=== PATIENT | male | born 1965 | race Hispanic/Latino ===

== ENCOUNTER 2017-02-01 06:22 | Day surgery (SDC) | payer OTHER ==
[2017-02-01] MEDS ORDERED: ECOTRIN PO ONE (07:11)
[2017-02-01] MEDS ORDERED: NACL 0.9% 500 ML 500 ML IV SCH (08:00)
[2017-02-01 08:10] LABS: Basophils % (Auto) 0.4 % (0.0-1.8); Eosinophils % (Auto) 1.4 % (0.0-4.3); Hematocrit 41.7 % (35.5-45.6); Hemoglobin 13.5 gm/dl (11.8-15.2); Mean Corpuscular HGB Conc 32 % (32-34); Mean Corpuscular Hemoglobin 29 pg (28-32); Mean Corpuscular Volume 88 fl (84-94); Platelet Count 248 K/mm3 (140-440); Red Blood Count 4.74 M/mm3 (3.65-5.03); Red Cell Distribution Width 15.4 % (13.2-15.2); White Blood Count 7.9 K/mm3 (4.5-11.0)
[2017-02-01 08:23] LABS: INR 0.93 (0.87-1.13)
[2017-02-01 08:27] LABS: Anion Gap 16 mmol/L; BUN/Creatinine Ratio 10.83; Blood Urea Nitrogen 13 mg/dL (9-20); Calcium 8.4 mg/dL (8.4-10.2); Carbon Dioxide 24 mmol/L (22-30); Chloride 105.9 mmol/L (98-107); Glucose 91 mg/dL (75-100); Potassium 3.8 mmol/L (3.6-5.0); Sodium 142 mmol/L (137-145)
[2017-02-01] MEDS ORDERED: BENADRYL ONE (09:12)
[2017-02-01] MEDS ORDERED: HEPARIN/NS 5000 UNIT/500ML(CATH LAB) 0 ML IR ONE (09:27)
[2017-02-01] MEDS ORDERED: HEPARIN/NS 5000 UNIT/500ML(CATH LAB) 1,000 ML IR ONE (09:28)
[2017-02-01] MEDS ORDERED: HEPARIN 10,000 UNITS/10 ML ONE (09:29)
[2017-02-01] MEDS ORDERED: CALAN ONE (09:29)
[2017-02-01] MEDS ORDERED: XYLOCAINE 2% INFILTRATI ONE (09:29)
[2017-02-01] MEDS ORDERED: SUBLIMAZE ONE (09:30)
[2017-02-01] MEDS ORDERED: VERSED ONE (09:30)
[2017-02-01] MEDS ORDERED: BENADRYL IV ONE (09:37)
[2017-02-01] MEDS: NITROGLYCERIN SYRINGE 3 ML ONE ×2 (10:09→10:19)
--- NOTE | 2017-02-01 10:43 | Discharge Summary ---
Short Stay Discharge Plan Activity: advance as tolerated Weight Bearing Status: Full Weight Bearing Diet: low fat, low cholesterol, low salt Wound: keep clean and dry Special Instructions: no heavy lifting (3 days) Follow up with: LETY KIDD MD [Primary Care Provider] - 7 Days
--- NOTE | 2017-02-01 10:55 | Cardiac Catherization Report ---
CARDIAC CATHETERIZATION REASON FOR PROCEDURE: Chest pain. PROCEDURE: The patient was prepped and draped in a sterile fashion after informed consent. The right radial cath site was prepped and draped after a negative Keenan's test. The right radial artery was entered using the Seldinger technique followed by placement of a 6-Urdu hydrophilic sheath. Routine radial cocktail was administered via the sheath. A 3.5 left Senait catheter was used for left coronary angiography. A #4 right Senait was used for right coronary angiography. The pigtail catheter was used for left ventricle angiography. The catheters were removed, sheath removed, and hemostasis achieved using manual compression. The patient was returned to the postprocedure unit in stable condition. There were no complications. FINDINGS: HEMODYNAMICS: Left ventricle end diastolic pressure was 25-30, following coronary angiography. Ascending aortic pressure was 150/80. There was no significant pressure gradient on pullback across the aortic valve. CORONARY ANGIOGRAPHY: The left main coronary artery was angiographically normal. Left anterior descending artery and its diagonal branches were angiographically normal. The circumflex artery and its obtuse marginal branches were angiographically normal. The right coronary artery was dominant and similarly angiographically normal. There was normal left ventricular systolic function, ejection fraction 55-60%. CONCLUSION: 1. Angiographically normal coronary arteries. 2. Normal left ventricular systolic function, ejection fraction 55-60%. RECOMMENDATION: Risk factor modification and medical therapy. JOB# [id number] AZRA/NTS
[2017-02-01] MEDS ORDERED: NACL 0.9% 1000 ML 1,000 ML IV SCH (11:00)
[2017-02-01 12:23] VITALS: BP 142/83
== END 2017-02-01 13:05 | disposition home or self-care (01) ==
LOC: CATHLABREC 06:22
PROVIDERS: ATTEND Internal Medicine Cardiovascular Disease
DX: R07.9 Chest pain, unspecified (principal); I10 Essential (primary) hypertension; M15.9 Polyosteoarthritis, unspecified; J45.909 Unspecified asthma, uncomplicated; F32.9 Major depressive disorder, single episode, unspecified; K21.9 Gastro-esophageal reflux disease without esophagitis; E78.5 Hyperlipidemia, unspecified; E66.01 Morbid (severe) obesity due to excess calories; Z68.42 Body mass index [BMI] 45.0-49.9, adult; Z86.19 Personal history of other infectious and parasitic diseases; Z98.890 Other specified postprocedural states; Z96.649 Presence of unspecified artificial hip joint; Z79.899 Other long term (current) drug therapy; Z79.82 Long term (current) use of aspirin
CPT/HCPCS: 36415; 80048; 85025; 85610; 93005; 93010; 93458; C1894; J1200; J1644; J1720; J2250; J3010; J7040; Q9967